=== PATIENT | female | born 1960 | race Caucasian/White ===

== ENCOUNTER 2017-07-15 05:55 | Day surgery (SDC) | payer OTHER ==
[2017-07-15] MEDS ORDERED: PERCOCET 5-3251 EACH PO (08:04)
[2017-07-15] MEDS ORDERED: COLACE100 MG PO (08:04)
== END 2017-07-15 12:25 | disposition home or self-care (01) ==
LOC: CIR.AMB 05:55
DX: K64.8 Other hemorrhoids (principal)